=== PATIENT | female | born 1985 | race Caucasian/White ===

== ENCOUNTER 2022-06-22 15:28 | Emergency (ER) | payer MEDICAID | END 2022-06-22 16:50 | disposition home or self-care (01) | LOC: VM.ED 15:28 | DX: N30.90 Cystitis, unspecified without hematuria (principal); Z88.5 Allergy status to narcotic agent; Z91.040 Latex allergy status | CPT/HCPCS: 81001; 87086; 99283 ==

== ENCOUNTER 2025-02-07 12:04 | Emergency (ER) | payer MEDICAID | END 2025-02-07 13:10 | disposition home or self-care (01) | LOC: VM.ED 12:04 | DX: J01.00 Acute maxillary sinusitis, unspecified (principal); Z79.899 Other long term (current) drug therapy; Z88.1 Allergy status to other antibiotic agents; Z88.8 Allergy status to other drugs, medicaments and biological substances; Z91.040 Latex allergy status | CPT/HCPCS: 99283 ==